=== PATIENT | male | born 1965 | race Caucasian/White ===

== ENCOUNTER → 2016-07-26 | Outpatient (CLI) | payer BC ==
[2016-07-26 18:20] LABS: BASO % 0.2 %; BASO ABS # 0.02 K/uL (0-0.2); COMPLETE YES; EOS % 1.6 %; HEMATOCRIT 40.4 % (42-52); IG% 0.5 %; LYMPH % 23.4 %; LYMPH ABS # 1.95 K/uL (1.2-3.4); MEAN CELL VOLUME 84.7 fL (80-100); MEAN CORPUSCULAR HGB CONC 35.4 g/dl (32-36); MEAN PLATELET VOLUME 10.3 fL (7.4-10.4); MONO % 9.2 %; NEUT % 65.1 %; PLATELET COUNT 262 K/uL (130-400); RED BLOOD COUNT 4.77 M/uL (4.7-6.1); WHITE BLOOD COUNT 8.35 K/uL (4.8-10.8)
[2016-07-26 18:40] LABS: ALT/SGPT 54 U/L (12-78); BLOOD UREA NITROGEN 21 mg/dl (7-18); BUN/CREATININE RATIO 18.9 (10-20); CALCIUM 8.4 mg/dl (8.5-10.1); CARBON DIOXIDE 27 mmol/L (21-32); CHLORIDE 108 mmol/L (98-107); GLUCOSE 80 mg/dl (70-99); POTASSIUM 4.2 mmol/L (3.5-5.1); SODIUM 143 mmol/L (136-145)
[2016-07-26 18:45] LABS: ALKALINE PHOSPHATASE 92 U/L (45-117); AST/SGOT 32 U/L (15-37); PHOSPHORUS 3.3 mg/dl (2.5-4.9)
== END | disposition home or self-care (01) ==
LOC: C.LABMFLN 13:34
PROVIDERS: ATTEND Family Medicine
DX: R53.83 Other fatigue (principal); R06.02 Shortness of breath

== ENCOUNTER → 2016-09-13 | Outpatient (CLI) | payer BC ==
[2016-09-13 13:29] LABS: CHOLESTEROL/HDL RATIO 3.4
== END | disposition home or self-care (01) ==
LOC: C.LABMFLN 08:56
PROVIDERS: ATTEND Family Medicine
DX: E78.5 Hyperlipidemia, unspecified (principal)

== ENCOUNTER → 2016-12-27 | Outpatient (CLI) | payer BC ==
[2016-12-27 13:33] LABS: CHOLESTEROL/HDL RATIO 2.6
== END | disposition home or self-care (01) ==
LOC: C.LABMFLN 07:27
PROVIDERS: ATTEND Family Medicine
DX: E78.5 Hyperlipidemia, unspecified (principal)

== ENCOUNTER → 2017-08-15 | Outpatient (CLI) | payer BC | END | disposition home or self-care (01) | LOC: C.LABMFLN 07:51 | PROVIDERS: ATTEND Family Medicine | DX: Z13.220 Encounter for screening for lipoid disorders (principal); Z13.1 Encounter for screening for diabetes mellitus ==

== ENCOUNTER → 2017-09-19 | Outpatient (CLI) | payer BC ==
[2017-09-19 13:18] LABS: ALBUMIN 4.1 gm/dl (3.4-5.0); ALT/SGPT 34 U/L (12-78); BLOOD UREA NITROGEN 24 mg/dl (7-18); CALCIUM 8.9 mg/dl (8.5-10.1); CARBON DIOXIDE 26 mmol/L (21-32); CREATININE 0.79 mg/dl (0.60-1.40); GLUCOSE 99 mg/dl (70-99); SODIUM 138 mmol/L (136-145)
[2017-09-19 13:23] LABS: ALKALINE PHOSPHATASE 78 U/L (45-117); AST/SGOT 26 U/L (15-37); TOTAL PROTEIN 7.8 gm/dl (6.4-8.2)
== END | disposition home or self-care (01) ==
LOC: C.LABMFLN 09:14
PROVIDERS: ATTEND Family Medicine
DX: R74.8 Abnormal levels of other serum enzymes (principal); Z12.5 Encounter for screening for malignant neoplasm of prostate